=== PATIENT | female | born 1945 | race Caucasian/White ===

== ENCOUNTER 2018-01-25 05:27 | Inpatient (IN) | payer MEDICARE ==
[2018-01-19 12:50] LABS: BASOPHILS % (AUTO) 0.7 % (0-1); EOSINOPHILS # (AUTO) 0.1 X10'3 (0-0.9); EOSINOPHILS % (AUTO) 1.6 % (0-6); LYMPHOCYTES # (AUTO) 1.4 X10'3 (1.1-4.8); LYMPHOCYTES % (AUTO) 23.6 % (21-51); MEAN CORPUSCULAR HEMOGLOBIN 32.1 PG (27.0-31.0); MEAN CORPUSCULAR HGB CONC 34.7 % (33.0-36.5); MEAN CORPUSCULAR VOLUME 92.3 FL (78-98); MEAN PLATELET VOLUME 7.6 FL (7.4-10.4); MONOCYTES # (AUTO) 0.5 X10'3 (0-0.9); MONOCYTES % (AUTO) 8.9 % (2-12); NEUTROPHILS # (AUTO) 3.8 X10'3 (1.8-7.7); NEUTROPHILS % (AUTO) 65.2 % (42-75); PRE OP HEMATOCRIT 29.4 % (35.0-45.0); PRE OP PLATELET COUNT 265 X10'3 (140-440); RED BLOOD COUNT 3.18 X10'6 (4.20-5.60); RED CELL DISTRIBUTION WIDTH 14.2 % (11.5-14.5)
[2018-01-19 12:54] LABS: PRE OP HEMOGLOBIN 10.2 g/dL (12.0-16.0)
[2018-01-19 12:58] LABS: CLARITY,URINE Clear (Clear); COLOR,URINE Yellow (Yellow); GLUCOSE, URINE 500 mg/dl (Neg); KETONES,URINE Negative (Neg); LEUKOCYTE ESTERASE ,URINE Small (Neg); NITRITES, URINE Negative (Neg); OCCULT BLOOD,URINE Negative (Neg); PH,URINE 5.5 (4.8-8.0); PROTEIN,URINE Negative (Neg); UROBILINOGEN,URINE 0.2 E.U/dL (0.2-1.0)
[2018-01-19 12:59] LABS: UA COLLECTION TYPE CLN CATCH MIDSTREAM
[2018-01-19 13:03] LABS: HEMOGLOBIN A1C 7.2 % (4.5-6.2)
[2018-01-19 13:06] LABS: ALBUMIN 3.8 G/DL (3.4-5.0); ALKALINE PHOSPHATASE 110 IU/L (46-116); BLOOD UREA NITROGEN 30 MG/DL (7-18); BUN/CREATININE RATIO 26.1 (6.6-38.0); CALCIUM 8.6 MG/DL (8.5-10.1); CHLORIDE 98 MMOL/L (99-107); CREATININE 1.15 MG/DL (0.40-0.90); PRE OP ALT 20 U/L (30-65); PRE OP ANION GAP 8 (8-16); PRE OP AST 11 U/L (10-37); PRE OP BILIRUB, TOTAL 0.3 MG/DL (0.0-1.0); PRE OP POTASSIUM 4.6 MMOL/L (3.4-5.1); PRE OP SODIUM 133 MMOL/L (135-145); TOTAL CARBON DIOXIDE 26.9 MMOL/L (24-32); TOTAL PROTEIN 7.6 G/DL (6.4-8.2); eGFR 46 ML/MIN
[2018-01-19 13:09] LABS: PRE OP GLUCOSE 267 MG/DL (70-104)
[2018-01-19 13:10] LABS: HYALINE CASTS 0-3 /LPF (NEGATIVE); MUCUS STRANDS FEW /LPF (Neg); SQUAMOUS EPITHELIAL CELL,UR FEW /LPF (FEW)
[2018-01-19 13:12] LABS: BACTERIA,URINE 1+ /HPF (Neg); RBC,URINE NONE SEEN /HPF (0-2); WBC,URINE 0-4 /HPF (0-4)
[2018-01-19 13:56] LABS: PRE OP PROTIME 10.4 SECONDS (9.0-12.0)
[2018-01-25] VITALS (15 sets, daily range): BP systolic 97–125; BP diastolic 38–73
[~2018-01-25] VITALS: Ht 152.4 cm; Wt 78.9 kg
[~2018-01-25 05:27] MED LIST: BUTA1TAB54 PO; CITA40TA22 PO; CLIN-100 PO; FLUO15CR TOP; INSU100V11 SQ; INSU100V9 SQ; LANTUS SQ; LISI-600 PO; SIMV20TA5 PO; ringers solution, lacted 1,000 ML IV SCH
[2018-01-25] MEDS ORDERED: famotidine 20mg tablet PO ONE (05:30)
[2018-01-25] MEDS ORDERED: tranexamic acid inj. 1,000 MG in normal saline 100ml IV soln 90 ML IV ONE (05:30)
[2018-01-25] MEDS ORDERED: vancomycin inj 1,500 MG in normal saline 300ml IV soln IV ONE (05:30)
[2018-01-25] MEDS ORDERED: clindamycin-Cleocin 900mg/D5W 50 ML IV ONE (05:30)
[2018-01-25] MEDS ORDERED: LIDOcaine 1% (10mg/ml) 2ml vial ONE (05:45)
[2018-01-25] MEDS ORDERED: dextrose 50%-water 50ml dispensing syringe IV ONE ×3 (06:16→10:20)
[2018-01-25] MEDS ORDERED: ROPIVAcaine 0.5% (5mg/ml) 30ml vial ONE (07:14)
[2018-01-25] MEDS ORDERED: cloNIDine hcl/PF 100mcg/ml inj ONE (07:14)
[2018-01-25] MEDS ORDERED: tetracaine 1% (10mg/ml) pres. free inj. ONE (07:15)
[2018-01-25] MEDS ORDERED: BUPIVAcaine/PF 7.5mg/ml (0.75%) 10ml vial ONE (07:15)
[2018-01-25] MEDS ORDERED: fentaNYL/PF 50MCG/1 ML 2ML syringe ONE (07:17)
[2018-01-25] MEDS ORDERED: MIDAZolam 1mg/ml 10ml vial ONE (07:17)
[2018-01-25] MEDS ORDERED: morphine /PF 1mg/ml 10ml inj. ONE (07:17)
[2018-01-25] MEDS ORDERED: LIDOcaine 2% (20mg/ml) 5ml vial ONE (07:33)
[2018-01-25] MEDS ORDERED: propofol inj 20 ML IV ONE ×2 (07:33)
[2018-01-25] MEDS ORDERED: ringers solution, lacted 1,000 ML IV SCH (08:21)
[2018-01-25] MEDS ORDERED: ondansetron/PF 4mg/2ml inj IV PRN ×3 (08:25→10:00)
[2018-01-25] MEDS ORDERED: diphenhydrAMINE 50 mg/ml inj IV PRN (08:25)
[2018-01-25] MEDS ORDERED: fentaNYL/PF 50MCG/1 ML 2ML syringe IV PRN ×2 (08:25)
[2018-01-25] MEDS ORDERED: hydrALAZINE 20mg/ml inj. IV PRN (08:25)
[2018-01-25] MEDS ORDERED: morphine 4 MG/ML inj SYRINge IV PRN ×2 (08:25)
[2018-01-25] MEDS ORDERED: enalaprilat dihydrate 2.5mg/2ml vial IV PRN (08:25)
[2018-01-25] MEDS ORDERED: bisacodyl 10mg suppository rectal RC PRN (10:00)
[2018-01-25] MEDS ORDERED: acetaminophen 325mg tablet PO PRN (10:00)
[2018-01-25] MEDS ORDERED: HYDROcodone/acetaminophen 10/325mg tab PO PRN ×2 (10:00)
[2018-01-25] MEDS ORDERED: magnesium hydroxide 30ml (MOM) UD suspension PO PRN (10:00)
[2018-01-25] MEDS ORDERED: HYDROmorphone inj. 0.5 MG/0.5 ML DISP.SYRIN IV PRN (10:00)
[2018-01-25] MEDS ORDERED: diphenhydrAMINE 25mg capsule PO PRN ×2 (10:00)
[2018-01-25] MEDS ORDERED: glucagon, human recombinant 1mg kit SUBCUT PRN (10:10)
[2018-01-25] MEDS ORDERED: dextrose ORAL solution 15 GM/59 ML bottle PO PRN ×2 (10:10)
[2018-01-25] MEDS ORDERED: dextrose 50%-water 50ml dispensing syringe IV PRN ×2 (10:10)
[2018-01-25] MEDS ORDERED: MESSAGE TO PHARMACY PO ONE (10:10)
[2018-01-25] MEDS: dextrose 5%-normal saline 1,000 ML IV SCH ×2 (10:20→20:20)
[2018-01-25] MEDS ORDERED: tranexamic acid inj. 790 MG in normal saline 100ml IV soln 100 ML IV ONE (13:00)
[2018-01-25] MEDS ORDERED: SIMV20TA5 PO (13:05)
[2018-01-25] MEDS ORDERED: INSU100V11 SQ (13:05)
[2018-01-25] MEDS ORDERED: LANTUS SQ (13:05)
[2018-01-25] MEDS ORDERED: LISI-600 PO (13:05)
[2018-01-25] MEDS ORDERED: BUTA1TAB54 PO (13:05)
[2018-01-25] MEDS ORDERED: INSU100V9 SQ (13:05)
[2018-01-25] MEDS ORDERED: CLIN-100 PO (13:05)
[2018-01-25] MEDS ORDERED: FLUO15CR TOP (13:05)
[2018-01-25] MEDS ORDERED: CITA40TA22 PO (13:05)
[2018-01-25] MEDS: potassium Cl 20mEq in NS 1,000 ML IV SCH ×2 (14:30→23:45)
[2018-01-25] MEDS: clindamycin-Cleocin 900mg/D5W 50 ML IV SCH ×2 (16:14→23:45)
[2018-01-25] MEDS: aspirin 81mg tablet.DR PO SCH (17:39)
[2018-01-25] MEDS: insulin Lispro (HumaLOG) vial - multi-dose SQ SCH ×2 (17:46→19:01)
[2018-01-25] MEDS ORDERED: HYDROmorphone 1 mg/ml syringe ONE (18:53)
[2018-01-25] MEDS ORDERED: vancomycin/NS 1 GM ADD-VANTAGE 250 ML IV SCH (20:00)
[2018-01-25] MEDS: lisinopril 20mg tablet PO SCH (20:40)
[2018-01-25] MEDS: sennosides 8.6mg tablet PO SCH (20:40)
[2018-01-25] MEDS: oxyCODONE/APAP 10/325mg tablet PO PRN (20:41)
[2018-01-25] MEDS: insulin glargine (Lantus) pen - multi-dose SQ SCH (22:02)
[2018-01-26 02:00] VITALS: BP 109/48
[2018-01-26] MEDS: oxyCODONE/APAP 10/325mg tablet PO PRN ×5 (02:04→19:19)
[2018-01-26 06:00] VITALS: BP 96/51
[2018-01-26 06:00] LABS: BASOPHILS % (AUTO) 0.1 % (0-1); EOSINOPHILS # (AUTO) 0.1 X10'3 (0-0.9); HEMATOCRIT 26.1 % (35.0-45.0); HEMOGLOBIN 8.9 g/dl (12.0-16.0); LYMPHOCYTES # (AUTO) 0.6 X10'3 (1.1-4.8); LYMPHOCYTES % (AUTO) 6.1 % (21-51); MEAN CORPUSCULAR HEMOGLOBIN 31.9 PG (27.0-31.0); MEAN CORPUSCULAR HGB CONC 34.1 % (33.0-36.5); MEAN CORPUSCULAR VOLUME 93.4 FL (78-98); MEAN PLATELET VOLUME 7.3 FL (7.4-10.4); MONOCYTES # (AUTO) 1.2 X10'3 (0-0.9); MONOCYTES % (AUTO) 11.6 % (2-12); NEUTROPHILS # (AUTO) 8.3 X10'3 (1.8-7.7); NEUTROPHILS % (AUTO) 81.2 % (42-75); PLATELET COUNT 253 X10'3 (140-440); RED BLOOD COUNT 2.79 X10'6 (4.20-5.60); RED CELL DISTRIBUTION WIDTH 14.7 % (11.5-14.5); WHITE BLOOD COUNT 10.3 X10'3 (4.5-11.0)
[2018-01-26 06:29] LABS: ALANINE AMINOTRANSFERASE 25 U/L (12-78); ALBUMIN 3.2 G/DL (3.4-5.0); ALBUMIN/GLOBULIN RATIO 0.9 (1.1-1.5); ALKALINE PHOSPHATASE 66 IU/L (46-116); ANION GAP 6 (8-16); ASPARTATE AMINO TRANSFERASE 18 U/L (10-37); BILIRUBIN,TOTAL 0.2 MG/DL (0.1-1.0); BLOOD UREA NITROGEN 38 MG/DL (7-18); BUN/CREATININE RATIO 20.3 (6.6-38.0); CALCIUM 7.5 MG/DL (8.5-10.1); CHLORIDE 102 MMOL/L (99-107); CREATININE 1.87 MG/DL (0.40-0.90); GLUCOSE 230 MG/DL (70-104); SODIUM 131 MMOL/L (135-145); TOTAL CARBON DIOXIDE 23.3 MMOL/L (24-32); TOTAL PROTEIN 6.6 G/DL (6.4-8.2); eGFR 26 ML/MIN
[2018-01-26 06:31] LABS: POTASSIUM 6.5 MMOL/L (3.5-5.1)
[2018-01-26] MEDS: HYDROmorphone 1 mg/ml syringe IV PRN ×4 (07:32→21:25)
[2018-01-26] MEDS: normal saline 1000ml 1,000 ML IV SCH ×3 (07:32→22:43)
[2018-01-26] MEDS: lisinopril 20mg tablet PO SCH ×2 (08:00→19:19)
[2018-01-26] MEDS: insulin Lispro (HumaLOG) vial - multi-dose SQ SCH ×3 (09:49→19:15)
[2018-01-26] MEDS: aspirin 81mg tablet.DR PO SCH ×2 (09:53→17:51)
[2018-01-26] MEDS: citalopram 20mg tablet PO SCH (09:53)
[2018-01-26 10:00] VITALS: BP 96/51
[2018-01-26] MEDS: Protein Smoothie (high protein) 240ml (8oz) cup PO SCH ×2 (13:00→19:11)
[2018-01-26] MEDS ORDERED: furosemide 20 MG/2 ML vial IV ONE (14:30)
[2018-01-26 18:00] VITALS: BP 141/51
[2018-01-26 18:18] LABS: ALANINE AMINOTRANSFERASE 23 U/L (12-78); ALBUMIN 3.2 G/DL (3.4-5.0); ALBUMIN/GLOBULIN RATIO 0.9 (1.1-1.5); ALKALINE PHOSPHATASE 68 IU/L (46-116); ANION GAP 7 (8-16); ASPARTATE AMINO TRANSFERASE 23 U/L (10-37); BILIRUBIN,TOTAL 0.2 MG/DL (0.1-1.0); BLOOD UREA NITROGEN 38 MG/DL (7-18); BUN/CREATININE RATIO 21.5 (6.6-38.0); CALCIUM 8.2 MG/DL (8.5-10.1); CHLORIDE 101 MMOL/L (99-107); CREATININE 1.77 MG/DL (0.40-0.90); GLUCOSE 218 MG/DL (70-104); POTASSIUM 5.5 MMOL/L (3.5-5.1); SODIUM 132 MMOL/L (135-145); TOTAL CARBON DIOXIDE 24.5 MMOL/L (24-32); TOTAL PROTEIN 6.7 G/DL (6.4-8.2); eGFR 28 ML/MIN
[2018-01-26] MEDS: sennosides 8.6mg tablet PO SCH (19:19)
[2018-01-26] MEDS: insulin glargine (Lantus) pen - multi-dose SQ SCH (21:20)
[2018-01-26 22:00] VITALS: BP 116/46
[2018-01-27] MEDS: oxyCODONE/APAP 10/325mg tablet PO PRN ×4 (01:44→18:42)
[2018-01-27 05:22] LABS: BASOPHILS % (AUTO) 0.3 % (0-1); EOSINOPHILS # (AUTO) 0.1 X10'3 (0-0.9); HEMOGLOBIN 7.8 g/dl (12.0-16.0); LYMPHOCYTES # (AUTO) 0.9 X10'3 (1.1-4.8); LYMPHOCYTES % (AUTO) 8.9 % (21-51); MEAN CORPUSCULAR HEMOGLOBIN 31.7 PG (27.0-31.0); MEAN CORPUSCULAR HGB CONC 33.7 % (33.0-36.5); MEAN CORPUSCULAR VOLUME 94.1 FL (78-98); MEAN PLATELET VOLUME 7.2 FL (7.4-10.4); MONOCYTES # (AUTO) 1.3 X10'3 (0-0.9); MONOCYTES % (AUTO) 12.2 % (2-12); NEUTROPHILS % (AUTO) 77.6 % (42-75); PLATELET COUNT 205 X10'3 (140-440); RED BLOOD COUNT 2.45 X10'6 (4.20-5.60); RED CELL DISTRIBUTION WIDTH 15.2 % (11.5-14.5); WHITE BLOOD COUNT 10.4 X10'3 (4.5-11.0)
[2018-01-27 06:00] VITALS: BP 129/60
[2018-01-27 06:11] LABS: ALANINE AMINOTRANSFERASE 26 U/L (12-78); ALBUMIN 2.7 G/DL (3.4-5.0); ALBUMIN/GLOBULIN RATIO 0.8 (1.1-1.5); ALKALINE PHOSPHATASE 59 IU/L (46-116); ANION GAP 6 (8-16); ASPARTATE AMINO TRANSFERASE 22 U/L (10-37); BILIRUBIN,TOTAL 0.3 MG/DL (0.1-1.0); BLOOD UREA NITROGEN 35 MG/DL (7-18); BUN/CREATININE RATIO 22.9 (6.6-38.0); CHLORIDE 103 MMOL/L (99-107); CREATININE 1.53 MG/DL (0.40-0.90); GLUCOSE 254 MG/DL (70-104); SODIUM 132 MMOL/L (135-145); TOTAL CARBON DIOXIDE 22.6 MMOL/L (24-32); eGFR 33 ML/MIN
[2018-01-27] MEDS ORDERED: furosemide 20 MG/2 ML vial IV ONE (07:35)
[2018-01-27] MEDS ORDERED: furosemide 20MG tablet PO ONE (07:55)
[2018-01-27] MEDS: lisinopril 20mg tablet PO SCH ×2 (08:00→20:00)
[2018-01-27] MEDS: citalopram 20mg tablet PO SCH (08:26)
[2018-01-27] MEDS: aspirin 81mg tablet.DR PO SCH ×2 (08:26→18:41)
[2018-01-27] MEDS: Protein Smoothie (high protein) 240ml (8oz) cup PO SCH ×3 (08:29→18:39)
[2018-01-27] MEDS: insulin Lispro (HumaLOG) vial - multi-dose SQ SCH ×2 (09:19→14:29)
[2018-01-27 10:30] VITALS: BP 115/51
[2018-01-27] MEDS: normal saline 1000ml 1,000 ML IV SCH ×2 (13:20→20:45)
[2018-01-27 18:00] VITALS: BP 119/51
[2018-01-27] MEDS: sennosides 8.6mg tablet PO SCH (20:45)
[2018-01-27] MEDS: insulin glargine (Lantus) pen - multi-dose SQ SCH (20:47)
[2018-01-27 22:00] VITALS: BP 111/49
[2018-01-28] MEDS: oxyCODONE/APAP 10/325mg tablet PO PRN ×4 (04:05→19:26)
[2018-01-28 05:35] LABS: BASOPHILS % (AUTO) 0.3 % (0-1); EOSINOPHILS # (AUTO) 0.1 X10'3 (0-0.9); EOSINOPHILS % (AUTO) 1.5 % (0-6); HEMATOCRIT 22.3 % (35.0-45.0); HEMOGLOBIN 7.5 g/dl (12.0-16.0); LYMPHOCYTES # (AUTO) 1.2 X10'3 (1.1-4.8); LYMPHOCYTES % (AUTO) 14.6 % (21-51); MEAN CORPUSCULAR HEMOGLOBIN 31.6 PG (27.0-31.0); MEAN CORPUSCULAR HGB CONC 33.8 % (33.0-36.5); MEAN CORPUSCULAR VOLUME 93.5 FL (78-98); MEAN PLATELET VOLUME 7.5 FL (7.4-10.4); MONOCYTES # (AUTO) 1.1 X10'3 (0-0.9); MONOCYTES % (AUTO) 13.6 % (2-12); NEUTROPHILS # (AUTO) 5.7 X10'3 (1.8-7.7); PLATELET COUNT 207 X10'3 (140-440); RED BLOOD COUNT 2.38 X10'6 (4.20-5.60); RED CELL DISTRIBUTION WIDTH 15.1 % (11.5-14.5); WHITE BLOOD COUNT 8.2 X10'3 (4.5-11.0)
[2018-01-28 06:00] VITALS: BP 130/56
[2018-01-28 06:13] LABS: ALANINE AMINOTRANSFERASE 21 U/L (12-78); ALBUMIN 2.7 G/DL (3.4-5.0); ALBUMIN/GLOBULIN RATIO 0.6 (1.1-1.5); ALKALINE PHOSPHATASE 59 IU/L (46-116); ANION GAP 8 (8-16); ASPARTATE AMINO TRANSFERASE 16 U/L (10-37); BILIRUBIN,TOTAL 0.2 MG/DL (0.1-1.0); BLOOD UREA NITROGEN 30 MG/DL (7-18); BUN/CREATININE RATIO 24.4 (6.6-38.0); CALCIUM 8.6 MG/DL (8.5-10.1); CHLORIDE 103 MMOL/L (99-107); CREATININE 1.23 MG/DL (0.40-0.90); GLUCOSE 201 MG/DL (70-104); POTASSIUM 5.2 MMOL/L (3.5-5.1); SODIUM 134 MMOL/L (135-145); TOTAL CARBON DIOXIDE 23.4 MMOL/L (24-32); TOTAL PROTEIN 6.9 G/DL (6.4-8.2); eGFR 43 ML/MIN
[2018-01-28] MEDS: citalopram 20mg tablet PO SCH (07:57)
[2018-01-28] MEDS: Protein Smoothie (high protein) 240ml (8oz) cup PO SCH ×3 (07:57→18:00)
[2018-01-28] MEDS: lisinopril 20mg tablet PO SCH ×2 (07:57→20:34)
[2018-01-28] MEDS: aspirin 81mg tablet.DR PO SCH ×2 (07:57→19:25)
[2018-01-28] MEDS: insulin Lispro (HumaLOG) vial - multi-dose SQ SCH ×3 (08:08→19:24)
[2018-01-28] MEDS: normal saline 1000ml 1,000 ML IV SCH (09:20)
[2018-01-28 09:55] VITALS: BP 141/57
[2018-01-28] MEDS ORDERED: aspirin 81mg tablet.DR PO SCH (17:37)
[2018-01-28 18:00] VITALS: BP 136/61
[2018-01-28] MEDS: sennosides 8.6mg tablet PO SCH (20:35)
[2018-01-28] MEDS: insulin glargine (Lantus) pen - multi-dose SQ SCH (21:44)
[2018-01-28 22:00] VITALS: BP 110/71
[2018-01-29 06:00] VITALS: BP 179/75
[2018-01-29 06:06] LABS: BASOPHILS % (AUTO) 0.1 % (0-1); EOSINOPHILS # (AUTO) 0.1 X10'3 (0-0.9); EOSINOPHILS % (AUTO) 0.8 % (0-6); HEMATOCRIT 24.1 % (35.0-45.0); HEMOGLOBIN 8.3 g/dl (12.0-16.0); LYMPHOCYTES # (AUTO) 0.8 X10'3 (1.1-4.8); LYMPHOCYTES % (AUTO) 10.7 % (21-51); MEAN CORPUSCULAR HEMOGLOBIN 31.9 PG (27.0-31.0); MEAN CORPUSCULAR HGB CONC 34.3 % (33.0-36.5); MEAN PLATELET VOLUME 7.1 FL (7.4-10.4); MONOCYTES # (AUTO) 0.8 X10'3 (0-0.9); MONOCYTES % (AUTO) 10.9 % (2-12); NEUTROPHILS # (AUTO) 5.6 X10'3 (1.8-7.7); NEUTROPHILS % (AUTO) 77.5 % (42-75); PLATELET COUNT 226 X10'3 (140-440); RED BLOOD COUNT 2.59 X10'6 (4.20-5.60); RED CELL DISTRIBUTION WIDTH 14.6 % (11.5-14.5); WHITE BLOOD COUNT 7.3 X10'3 (4.5-11.0)
[2018-01-29 06:33] LABS: ALANINE AMINOTRANSFERASE 20 U/L (12-78); ALBUMIN 2.7 G/DL (3.4-5.0); ALBUMIN/GLOBULIN RATIO 0.7 (1.1-1.5); ALKALINE PHOSPHATASE 60 IU/L (46-116); ANION GAP 10 (8-16); ASPARTATE AMINO TRANSFERASE 9 U/L (10-37); BILIRUBIN,TOTAL 0.4 MG/DL (0.1-1.0); BLOOD UREA NITROGEN 17 MG/DL (7-18); BUN/CREATININE RATIO 16.7 (6.6-38.0); CHLORIDE 99 MMOL/L (99-107); CREATININE 1.02 MG/DL (0.40-0.90); GLUCOSE 250 MG/DL (70-104); POTASSIUM 4.7 MMOL/L (3.5-5.1); SODIUM 132 MMOL/L (135-145); TOTAL CARBON DIOXIDE 23.4 MMOL/L (24-32); TOTAL PROTEIN 6.6 G/DL (6.4-8.2); eGFR 53 ML/MIN
[2018-01-29] MEDS ORDERED: ASPI-1071 PO (06:53)
[2018-01-29] MEDS ORDERED: PER10325T PO (06:53)
[2018-01-29] MEDS ORDERED: scopolamine 1.5mg patch.TD72 TD ONE (09:15)
[2018-01-29] MEDS: citalopram 20mg tablet PO SCH (09:23)
[2018-01-29] MEDS: aspirin 81mg tablet.DR PO SCH ×2 (09:24→09:43)
[2018-01-29] MEDS: lisinopril 20mg tablet PO SCH (09:24)
[2018-01-29] MEDS: Protein Smoothie (high protein) 240ml (8oz) cup PO SCH (09:26)
[2018-01-29] MEDS: insulin Lispro (HumaLOG) vial - multi-dose SQ SCH (09:26)
== END 2018-01-29 11:50 | disposition home or self-care (01) | DRG 470 ==
LOC: PAS IN 05:27 → EDSTATUS 07:30 → ORTHO 4S 11:15
PROVIDERS: ADMIT Orthopaedic Surgery; ATTEND Orthopaedic Surgery
PROC: 3E0T3BZ Introduction of Anesthetic Agent into Peripheral Nerves and Plexi, Percutaneous Approach (ICD-10-PCS; 2018-01-25)
PROC: 0SRD0J9 Replacement of Left Knee Joint with Synthetic Substitute, Cemented, Open Approach (ICD-10-PCS; principal; 2018-01-25 07:18)
PROC: 5A09357 Assistance with Respiratory Ventilation, Less than 24 Consecutive Hours, Continuous Positive Airway Pressure (ICD-10-PCS; 2018-01-29)
DX: M17.12 Unilateral primary osteoarthritis, left knee (principal); D62 Acute posthemorrhagic anemia; D63.1 Anemia in chronic kidney disease; E11.22 Type 2 diabetes mellitus with diabetic chronic kidney disease; G47.30 Sleep apnea, unspecified; I12.9 Hypertensive chronic kidney disease with stage 1 through stage 4 chronic kidney disease, or unspecified chronic kidney disease; E78.5 Hyperlipidemia, unspecified; F32.9 Major depressive disorder, single episode, unspecified; E87.5 Hyperkalemia; N18.9 Chronic kidney disease, unspecified; G89.29 Other chronic pain; M54.30 Sciatica, unspecified side; E66.9 Obesity, unspecified; Z96.651 Presence of right artificial knee joint; Z88.1 Allergy status to other antibiotic agents; Z88.0 Allergy status to penicillin; Z88.8 Allergy status to other drugs, medicaments and biological substances; Z79.82 Long term (current) use of aspirin; Z79.4 Long term (current) use of insulin; Z79.899 Other long term (current) drug therapy; Z87.891 Personal history of nicotine dependence; Z68.34 Body mass index [BMI] 34.0-34.9, adult
CPT/HCPCS: 36415; 80053; 81001; 82947; 82948; 83036; 84132; 85025; 85610; 85730; 86885; 86900; 86901; 86920; 87070; 87088; 97110; 97116; 97162; 97530; A6449; A6454; A7000; C1713; C1758; C1776; J0735; J1170; J1200; J1815; J1940; J2001; J2250; J2274; J2405; J2704; J2795; J3010; J3370; J3490; J7030; J7042; J7120